=== PATIENT | female | born 1995 | race Caucasian/White ===

== ENCOUNTER 2020-01-31 00:02 | Emergency (ER) | payer SELFPAY ==
[~2020-01-31] VITALS: Ht 160 cm; Wt 106.8 kg
--- NOTE | 2020-01-31 00:09 | PHYS DOC ---
General Adult HPI: HPI: 24-year-old female who is currently on no prescription medications presents for the evaluation of palpitations. Patient states 30 minutes prior to arrival she noticed her heart racing. She states she had some chest tightness. Patient denies any previous history of SVT. She denies any cough congestion fever chil ls. Patient does admit to smoking cigarettes and drinking this evening. Review of Systems: Review of Systems: Constitutional: Denies fever or chills. [] Eyes: Denies change in visual acuity. [] HENT: Denies nasal congestion or sore throat. [] Respiratory: Denies cough or shortness of breath. [] Cardiovascular: Palpitations positive GI: Denies abdominal pain, nausea, vomiting, bloody stools or diarrhea. [] : Denies dysuria. [] Musculoskeletal: Denies back pain or joint pain. [] Integument: Denies rash. [] Neurologic: Denies headache, focal weakness or sensory changes. [] Endocrine: Denies polyuria or polydipsia. [] Lymphatic: Denies swollen glands. [] Psychiatric: Denies depression or anxiety. [] Heart Score: Risk Factors: Risk Factors: DM, Current or recent (<one month) smoker, HTN, HLP, family history of CAD, obesity. Risk Scores: Score 0 - 3: 2.5% MACE over next 6 weeks - Discharge Home Score 4 - 6: 20.3% MACE over next 6 weeks - Admit for Clinical Observation Score 7 - 10: 72.7% MACE over next 6 weeks - Early Invasive Strategies Physical Exam: PE: Constitutional: Well developed, well nourished, no acute distress, non-toxic appearance. [] HENT: Normocephalic, atraumatic, bilateral external ears normal, oropharynx moist, no oral exudates, nose normal. [] Eyes: PERRLA, EOMI, conjunctiva normal, no discharge. [] Neck: Normal range of motion, no tenderness, supple, no stridor. [] Cardiovascular:Heart rate regular rhythm, no murmur [] Lungs & Thorax: Bilateral breath sounds clear to auscultation [] Abdomen: Bowel sounds normal, soft, no tenderness, no masses, no pulsatile m asses. [] Skin: Warm, dry, no erythema, no rash. [] Back: No tenderness, no CVA tenderness. [] Extremities: No tenderness, no cyanosis, no clubbing, ROM intact, no edema. [] Neurologic: Alert and oriented X 3, normal motor function, normal sensory function, no focal deficits noted. [] Psychologic: Affect normal, judgement normal, mood normal. [] EKG: EKhrs rate 226 SVT[] Repeat EKG performed at 0011 post adenosine 6 mg heart rate [address] elevations no ST depressions no acute CO Radiology/Procedures: Radiology/Procedures: [] Course & Med Decision Making: Course & Med Decision Making Pertinent Labs and Imaging studies reviewed. (See chart for details) [] Patient was evaluated for chief complaint. Work-up consisted of laboratory analysis and EKG. Results reviewed and discussed with the patient. Patient was in SVT with heart rate greater than 200. She was treated with 6 mg of adenosine with improvement of heart rate to sinus tachycardia 106 bpm. Patient states her baseline heart rate is between 100-110. Posttreatment patient states she feels much better. Patient was observed. Basic labs drawn no acute abnormalities. Patient was discharged home with instructions to follow-up with her primary care physician. Madeleine Disclaimer: Madeleine Disclaimer: This electronic medical record was generated, in whole or in part, using a voice recognition dictation system. Departure Departure Impression: Primary Impression: SVT (supraventricular tachycardia) Disposition: 01 HOME, SELF-CARE Condition: STABLE Referrals: ELIE ANGELO MD Patient Instructions: Supraventricular Tachycardia Scripts Potassium Chloride (POTASSIUM CHLORIDE ) 20 Meq Tablet.er 20 MEQ PO DAILY for SUPPLEMENT for 14 Days, #14 TAB.SR Prov: JORDY KERN DO 01/31/20 Justicifation of Admission Dx: Justifications for Admission: Justification of Admission Dx: N/A JORDY KERN DO Jan 31, 2020 00:09
[2020-01-31] MEDS ORDERED: ADENOSINE 6 MG/2 ML VIAL. IV ONE (00:15)
[2020-01-31 01:00] LABS: CALCIUM 8.7 mg/dL (8.5-10.1); CREATININE 0.8 mg/dL (0.6-1.0); GFR 86.7; POTASSIUM 3.2 mmol/L (3.5-5.1)
[2020-01-31 01:15] VITALS: BP 138/65
[2020-01-31] MEDS ORDERED: POTA20TA4 PO (01:16)
[2020-01-31 01:20] LABS: BASO # 0.1 x10^3/uL (0.0-0.2); BASO % 1 % (0-3); EOS # 0.1 x10^3/uL (0.0-0.7); EOS % 1 % (0-3); HEMATOCRIT 41.6 % (36.0-47.0); HEMOGLOBIN 14.5 g/dL (12.0-15.5); LYMPH # 2.5 x10^3/uL (1.0-4.8); LYMPH % 25 % (24-48); MEAN CORPUSCULAR HEMOGLOBIN 30 pg (25-35); MEAN CORPUSCULAR HGB CONC 35 g/dL (31-37); MEAN CORPUSCULAR VOLUME 87 fL (79-100); MONO # 0.6 x10^3/uL (0.0-1.1); MONO % 6 % (0-9); NEUT # 6.8 x10^3/uL (1.8-7.7); NEUT % 68 % (31-73); PLATELET COUNT 291 x10^3/uL (140-400); RED BLOOD COUNT 4.77 x10^6/uL (3.50-5.40); WHITE BLOOD COUNT 10.1 x10^3/uL (4.0-11.0)
--- NOTE | 2020-02-01 15:11 | EKG ---
[facility] [address] [place] [address] Test Date: 2020-01-31 Test Time: 00:07:56 Pat Name: SEB SANDERS Department: Room: Gender: F [employer]: : 1995 Requested By: JORDY KERN Order Number: [id number] Reading MD: Measurements Intervals [place] Rate: 226 P: CO: QRS: 18 QRSD: 84 T: 17 QT: 262 QTc: 514 Interpretive Statements SUPRAVENTRICULAR TACHYCARDIA ST ABNORMALITY, POSSIBLE HIGH LATERAL SUBENDOCARDIAL INJURY INFERIOR SUBENDOCARDIAL INJURY ABNORMAL ECG RI6.02 No previous ECG available for comparison
--- NOTE | 2020-02-01 15:12 | EKG ---
[facility] [address] [place] [address] Test Date: 2020-01-31 Test Time: 00:26:33 Pat Name: SEB SANDERS Department: Room: Gender: F [employer]: : 1995 Requested By: JORDY KERN Order Number: [id number] Reading MD: Measurements Intervals [place] Rate: 117 P: 39 [place]: 172 QRS: 13 QRSD: 86 T: 2 QT: 310 QTc: 437 Interpretive Statements SINUS TACHYCARDIA NO SPECIFIC ECG ABNORMALITIES RI6.01 Compared to ECG 01/31/2020 00:07:56 Supraventricular tachycardia no longer present ST (T wave) deviation no longer present
== END 2020-01-31 01:29 | disposition home or self-care (01) ==
LOC: ER 00:02
DX: I47.1 Supraventricular tachycardia (principal); R07.89 Other chest pain; F17.210 Nicotine dependence, cigarettes, uncomplicated
CPT/HCPCS: 36415; 80048; 85025; 93005; 96374; 99285; J0153